=== PATIENT | male | born 1975 | race Caucasian/White ===

== ENCOUNTER 2017-03-08 10:24 | Emergency (ER) | payer MEDICARE, BC ==
--- NOTE | ~2017-03-08 | EKG ---
PATIENT: CONSTANTINO JASSO UNIT #: [id number] Ventricular Rate: 61 BPM Atrial Rate: 61 BPM P-R Interval: 196 ms QRS Duration: 88 ms Q-T Interval: 416 ms QTC Calculation(Bezet): 418 ms P [place]: 14 degrees Calculated R [place]: 73 degrees Calculated T [place]: 21 degrees Diagnosis Line: Normal sinus rhythm with sinus arrhythmia Diagnosis Line: Normal ECG Diagnosis Line: When compared with ECG of 11-NOV-2009 21:00, Diagnosis Line: No significant change was found Diagnosis Line: Confirmed by FRANCIS GARCIA MD ([id number]) on Diagnosis Line: 03/09/2017 2:33:44 PM INTERPRETING MD: JOSE DAVIES
[~2017-03-08 10:24] MED LIST: ADVIL200 M2 PO; ALBUTEROL17 GM INH; ARTANE2 MG PO; BACLOFEN10 MG PO; BACTRIM DS TABL1 TAB PO; BOTOX200 UNIT; CIPRO PO; FLAGYL PO; HYDROCODON-ACE1 EAC7 PO; HYDROCODON-ACE1 EAC9 PO; KEPPRA1000 MG PO; KEPPRA750 MG PO; LIDODERM 5% PATCH; LORTAB 7.5-5001 TAB PO; NAPROSYN500 MG PO; PANTOPRAZOLE SO40 MG PO; PERCOCET PO; PERCOCET5/325 PO; TIZANIDINE HCL2 MG PO; TRIHEXYPHENIDYL2 MG PO; ZANAFLEX PO; ZOLOFT PO; ZOLOFT100 MG PO
[2017-03-08 11:12] LABS: POC - CKMB <1.0 ng/mL (0.0-7.9); POC - TROPONIN <0.05 ng/mL (<=0.05)
[2017-03-08 11:20] LABS: BASOPHIL# 0.1 X10e3 (0-0.3); BASOPHIL% 1.3 % (0-2.5); EOSINOPHIL# 0.4 X10e3 (0-0.7); EOSINOPHIL% 5.9 % (0.0-7.0); HEMOGLOBIN 15.8 gm/dL (13.0-16.0); LYMPHOCYTE# 1.8 X10e3 (1.0-3.5); LYMPHOCYTE% 30.1 % (17.0-45.0); MEAN CELL VOLUME 88.2 FL (83-96); MEAN CORPUSCULAR HEMOGLOBIN 30.4 PG (28-34); MEAN CORPUSCULAR HGB CONC 34.4 g/dL (30-36); MEAN PLATELET VOLUME 9.4 FL (6.5-11.5); MONOCYTE# 0.4 X10e3 (0-1.0); MONOCYTE% 7.3 % (3.0-12.0); NEUTROPHIL# 3.3 X10e3 (1.5-7.1); NEUTROPHIL% 55.4 % (40-75); PLATELET COUNT 196 X10e3 (140-420); RED BLOOD COUNT 5.22 X10e (3.90-5.60); RED CELL DISTRIBUTION WIDTH 13.8 % (11.0-15.5)
[2017-03-08 11:22] LABS: DIFF IND NO
[2017-03-08 11:28] LABS: BUN/CREATININE RATIO 16.25; CALCIUM SERUM 8.6 mg/dL (8.4-10.2); CREATININE SERUM 0.8 mg/dL (0.6-1.4); GLOM FILT RATE Estimated 109.5 mL/min (>60); POTASSIUM 3.2 mmol/L (3.5-5.1)
== END 2017-03-08 12:10 | disposition home or self-care (01) ==
LOC: SED 10:24
PROVIDERS: Emergency Medicine
DX: I10 Essential (primary) hypertension (principal); E87.6 Hypokalemia
CPT/HCPCS: 36415; 80048; 82553; 84484; 85025; 93005; 93225; 93226; 99285